=== PATIENT | female | born 1955 | race Asian ===

== ENCOUNTER 2017-12-08 06:31 | Inpatient (IN) | payer MEDICAID ==
[~2017-12-08] VITALS: Ht 172.7 cm; Wt 73.5 kg
[2017-12-08] VITALS (15 sets, daily range): BP systolic 96–122; BP diastolic 42–81
[2017-12-08 07:37] LABS: BASOPHILS % 0.4 % (0.0-2.0); EOSINOPHILS % 5.6 % (0.0-5.0); HEMATOCRIT. 48.5 % (36.0-48.0); HEMOGLOBIN. 16.2 g/dL (12.0-16.0); LYMPHOCYTES % 32.1 % (20.0-50.0); MEAN CORPUSCULAR HEMOGLOBIN 30.8 pg (28.0-32.0); MEAN CORPUSCULAR VOLUME 92.2 fL (81.0-99.0); MEAN PLATELET VOLUME 7.5 fl (7.4-10.4); MONOCYTES % 8.2 % (2.0-8.0); NEUTROPHILS % 53.7 % (40.0-76.0); PLATELET 276 x1000/uL (130-400); RED BLOOD CELL COUNT 5.26 mill/uL (4.2-5.4)
[2017-12-08 07:39] LABS: CHLORIDE 108 mEq/L (98-107)
[2017-12-08 07:42] LABS: PARTIAL THROMBOPLASTIN TIME 26.8 sec (23.4-31.0)
[2017-12-08] MEDS ORDERED: FENTANYL CITRATE/PF 50MCG/ML 2ML VIAL ONE (08:50)
[2017-12-08] MEDS ORDERED: MIDAZOLAM HCL 2 MG/2 ML VIAL ONE (08:50)
[2017-12-08] MEDS ORDERED: LIDOCAINE HCL 1% 10 MG/ML 10ML VIAL ONE (08:50)
[2017-12-08] MEDS ORDERED: IOHEXOL-300 100 ML BOTTLE ONE ×3 (08:51→10:08)
[2017-12-08] MEDS ORDERED: ASPI-1159 PO (09:05)
[2017-12-08] MEDS ORDERED: ATOR10TA69 PO (09:05)
[2017-12-08] MEDS ORDERED: LISI-186 PO (09:05)
[2017-12-08] MEDS ORDERED: COR6 PO (09:05)
[2017-12-08] MEDS ORDERED: PROTAMINE SULFATE 10MG/ML VIAL 5ML IV ONE (10:29)
[2017-12-08] MEDS ORDERED: ONDANSETRON HCL 4MG/2ML INJ IV PRN (11:00)
[2017-12-08] MEDS ORDERED: MORPHINE SULFATE 4 MG/ML CPJ (NOT FOR IM USE) IV PRN (11:00)
[2017-12-08] MEDS ORDERED: ACETAMINOPHEN 325MG TABLET PO PRN (11:00)
[2017-12-08] MEDS ORDERED: ATROPINE SULFATE 1MG/10ML SYR IV PRN (11:00)
[2017-12-08] MEDS: SODIUM CHLORIDE 0.45% 1,000 ML IV SCH ×2 (12:34→21:02)
[2017-12-08] MEDS ORDERED: HEPARIN SODIUM 1,000 UNIT/1ML VIAL IV ONE (13:31)
[2017-12-08] MEDS ORDERED: NITROGLYCERIN 50MCG/ML 10ML VIAL (CATH LAB) IV ONE (13:46)
[2017-12-08] MEDS ORDERED: NICARDIPINE 100MCG/ML 10ML VIAL (CATH LAB) IV ONE (13:46)
[2017-12-09] VITALS (10 sets, daily range): BP systolic 99–144; BP diastolic 54–98
[2017-12-09] MEDS: SODIUM CHLORIDE 0.45% 1,000 ML IV SCH (07:00)
[2017-12-09 07:26] LABS: BASOPHILS % 0.3 % (0.0-2.0); EOSINOPHILS % 4.8 % (0.0-5.0); HEMATOCRIT. 43.6 % (36.0-48.0); HEMOGLOBIN. 14.7 g/dL (12.0-16.0); LYMPHOCYTES % 28.2 % (20.0-50.0); MEAN CORPUSCULAR HEMOGLOBIN 31.1 pg (28.0-32.0); MEAN CORPUSCULAR VOLUME 92.2 fL (81.0-99.0); MEAN PLATELET VOLUME 7.8 fl (7.4-10.4); MONOCYTES % 7.7 % (2.0-8.0); PLATELET 234 x1000/uL (130-400); RED BLOOD CELL COUNT 4.73 mill/uL (4.2-5.4); RED CELL DISTRIBUTION WIDTH 14.5 % (11.6-14.6)
[2017-12-09 07:42] LABS: CHLORIDE 107 mEq/L (98-107)
== END 2017-12-09 17:35 | disposition home or self-care (01) | DRG 813 ==
LOC: CCL 06:31 → 3WST 06:32
PROVIDERS: ADMIT Internal Medicine Cardiovascular Disease; ATTEND Internal Medicine Cardiovascular Disease
PROC: 4A023N7 Measurement of Cardiac Sampling and Pressure, Left Heart, Percutaneous Approach (ICD-10-PCS; principal; 2017-12-08)
PROC: B2111ZZ Fluoroscopy of Multiple Coronary Arteries using Low Osmolar Contrast (ICD-10-PCS; 2017-12-08)
DX: I97.51 Accidental puncture and laceration of a circulatory system organ or structure during a circulatory system procedure (principal); I25.82 Chronic total occlusion of coronary artery; I25.10 Atherosclerotic heart disease of native coronary artery without angina pectoris; E78.5 Hyperlipidemia, unspecified; Z82.49 Family history of ischemic heart disease and other diseases of the circulatory system; Z87.891 Personal history of nicotine dependence; Z93.3 Colostomy status; Z80.0 Family history of malignant neoplasm of digestive organs; Z90.49 Acquired absence of other specified parts of digestive tract; Y65.8 Other specified misadventures during surgical and medical care; Y82.9 Unspecified medical devices associated with adverse incidents
CPT/HCPCS: 36415; 80048; 85025; 85347; 85610; 85730; 93005; 93306; 93458; C1769; C1887; C1893; J1644; J2250; J2720; J3010; J3490; Q9967

== ENCOUNTER 2018-04-20 11:07 | Inpatient (IN) | payer MEDICAID ==
[2018-04-20] VITALS (12 sets, daily range): BP systolic 104–132; BP diastolic 52–76
[~2018-04-20] VITALS: Ht 172.7 cm; Wt 88.6 kg
[~2018-04-20 11:07] MED LIST: ASPI-1159 PO; ATOR10TA69 PO; COR6 PO; LISI-186 PO
[2018-04-20] MEDS ORDERED: CLOP75TA33 MT (11:58)
[2018-04-20 12:15] LABS: HEMATOCRIT 52.7 % (36.0-48.0); HEMOGLOBIN 17.5 g/dL (12.0-16.0); MEAN CORPUSCULAR HEMOGLOBIN 31.2 pg (28.0-32.0); PLATELET 223 x1000/uL (130-400); RED BLOOD CELL COUNT 5.61 mill/uL (4.2-5.4); RED CELL DISTRIBUTION WIDTH 14.1 % (11.6-14.6)
[2018-04-20 12:20] LABS: CHLORIDE 105 mEq/L (98-107)
[2018-04-20] MEDS ORDERED: FENTANYL CITRATE/PF 50MCG/ML 2ML VIAL ONE (12:21)
[2018-04-20] MEDS ORDERED: IODIXANOL 320MG/ML 100 ML BOTTLE IV ONE (12:21)
[2018-04-20] MEDS ORDERED: LIDOCAINE HCL 1% 20ML VIAL (Pyxis) INJ ONE (12:21)
[2018-04-20] MEDS ORDERED: MIDAZOLAM HCL 2 MG/2 ML VIAL ONE (12:21)
[2018-04-20 12:29] LABS: INR 1.1; PROTHROMBIN TIME 10.7 sec (9.1-11.1)
[2018-04-20] MEDS ORDERED: NICARDIPINE 100MCG/ML 10ML VIAL (CATH LAB) IV ONE (13:01)
[2018-04-20] MEDS ORDERED: NITROGLYCERIN 50MCG/ML 10ML VIAL (CATH LAB) IV ONE (13:01)
[2018-04-20] MEDS ORDERED: HEPARIN SODIUM 1,000 UNIT/1ML VIAL IV ONE (14:10)
[2018-04-20] MEDS ORDERED: IOHEXOL-300 100 ML BOTTLE ONE (14:33)
[2018-04-20] MEDS ORDERED: ASPIRIN 325MG TABLET ONE (14:57)
[2018-04-20] MEDS ORDERED: CLOPIDOGREL 75MG TABLET ONE (14:57)
[2018-04-20] MEDS ORDERED: ONDANSETRON HCL 4MG/2ML INJ IV PRN (15:00)
[2018-04-20] MEDS ORDERED: MORPHINE SULFATE 4 MG/ML CPJ (NOT FOR IM USE) IV PRN (15:00)
[2018-04-20] MEDS ORDERED: ACETAMINOPHEN 325MG TABLET PO PRN (15:00)
[2018-04-20] MEDS ORDERED: ATROPINE SULFATE 1MG/10ML SYR IV PRN (15:00)
[2018-04-20] MEDS: SODIUM CHLORIDE 0.45% 1,000 ML IV SCH (16:23)
[2018-04-20] MEDS ORDERED: ATORVASTATIN CALCIUM 40MG TABLET PO SCH (21:00)
[2018-04-20] MEDS: CARVEDILOL 6.25 MG TABLET PO SCH (21:19)
[2018-04-21] VITALS: BP 113/63
[2018-04-21 02:00] VITALS: BP 98/71
[2018-04-21 05:59] LABS: BASOPHILS % 0.1 % (0.0-2.0); EOSINOPHILS % 1.2 % (0.0-5.0); HEMOGLOBIN. 14.7 g/dL (14.0-18.0); LYMPHOCYTES % 20.2 % (20.0-50.0); MEAN CORPUSCULAR HEMOGLOBIN 31.7 pg (28.0-32.0); MEAN CORPUSCULAR VOLUME 92.9 fL (80.0-94.0); MEAN PLATELET VOLUME 7.8 fl (7.4-10.4); MONOCYTES % 10.5 % (2.0-8.0); PLATELET 198 x1000/uL (130-400); RED BLOOD CELL COUNT 4.63 mill/uL (4.7-6.1); RED CELL DISTRIBUTION WIDTH 13.8 % (11.6-14.6)
[2018-04-21 07:40] VITALS: BP 109/62
[2018-04-21] MEDS: CARVEDILOL 6.25 MG TABLET PO SCH (08:53)
[2018-04-21] MEDS: SODIUM CHLORIDE 0.45% 1,000 ML IV SCH (08:55)
[2018-04-21] MEDS ORDERED: CLOPIDOGREL 75MG TABLET PO SCH (09:00)
[2018-04-21] MEDS ORDERED: LISINOPRIL 5MG TABLET PO SCH (09:00)
[2018-04-21] MEDS ORDERED: ASPIRIN 81MG EC TABLET PO SCH (09:00)
[2018-04-21 09:10] LABS: CHLORIDE 107 mEq/L (98-107)
[2018-04-21 09:57] VITALS: BP 113/87
[2018-04-21 10:00] VITALS: BP 106/70
== END 2018-04-21 10:55 | disposition home or self-care (01) | DRG 175 ==
LOC: CCL 11:07 → EDSEX 11:08 → 3WST 11:08
PROVIDERS: ADMIT Internal Medicine Cardiovascular Disease; ATTEND Internal Medicine Cardiovascular Disease
PROC: 027135Z Dilation of Coronary Artery, Two Arteries with Two Drug-eluting Intraluminal Devices, Percutaneous Approach (ICD-10-PCS; principal; 2018-04-20)
PROC: B2111ZZ Fluoroscopy of Multiple Coronary Arteries using Low Osmolar Contrast (ICD-10-PCS; 2018-04-20)
DX: I25.10 Atherosclerotic heart disease of native coronary artery without angina pectoris (principal); I11.0 Hypertensive heart disease with heart failure; I25.82 Chronic total occlusion of coronary artery; I50.30 Unspecified diastolic (congestive) heart failure; E78.5 Hyperlipidemia, unspecified; I25.5 Ischemic cardiomyopathy
CPT/HCPCS: 36415; 80048; 85027; 85347; 92928; 92929; 93005; 93454; C1760; C1769; C1874; C1887; C1893; J1644; J2250; J3010; J3490; Q9967